=== PATIENT | female | born 1995 | race African-American/Black ===

== ENCOUNTER 2021-10-04 07:46 | Emergency (ER) | payer SELFPAY | END 2021-10-04 08:02 | disposition home or self-care (01) | LOC: CSHERS 07:46 | DX: B34.9 Viral infection, unspecified (principal); I10 Essential (primary) hypertension | CPT/HCPCS: 99283 ==

== ENCOUNTER 2021-11-01 07:46 | Emergency (ER) | payer SELFPAY ==
[2021-11-01] MEDS ORDERED: Ibuprofen 200 MG TAB ONE ×2 (08:36→08:45)
[2021-11-01 18:25] LABS: SARS-CoV-2 PCR by NAA Not Detected (NotDetected)
== END 2021-11-01 08:50 | disposition home or self-care (01) ==
LOC: CSHERS 07:46
DX: K05.00 Acute gingivitis, plaque induced (principal); B34.9 Viral infection, unspecified; Z20.822 Contact with and (suspected) exposure to COVID-19; I10 Essential (primary) hypertension
CPT/HCPCS: 87804; 99283; U0003; U0005

== ENCOUNTER 2022-07-05 08:19 | Emergency (ER) | payer SELFPAY | END 2022-07-05 09:00 | disposition home or self-care (01) | LOC: CSHERS 08:19 | DX: J02.0 Streptococcal pharyngitis (principal); I10 Essential (primary) hypertension; Z79.899 Other long term (current) drug therapy | CPT/HCPCS: 99283 ==

== ENCOUNTER 2022-10-11 09:47 | Emergency (ER) | payer MEDICAID, SELFPAY ==
[2022-10-11 11:10] LABS: Mean Platelet Volume 12.4 fl (7.4-10.4)
[2022-10-11 11:11] LABS: Hemoglobin 13.5 g/dL (12.0-15.5); Mean Corpuscular Hemoglobin 26.4 pg (27.0-33.0); Mean Corpuscular Volume 82.4 fl (81.6-98.3); Platelet Count 153 10x3/uL (150-450); RBC Distribution Width 13.8 % (11.5-14.5)
[2022-10-11 11:18] LABS: ALT (SGPT) 11 U/L (8-55); AST (SGOT) 14 U/L (5-34); Albumin 4.2 g/dL (3.5-5.0); Alkaline Phosphatase 59 U/L (40-110); Anion Gap 13 mmol/L (10-20); BUN (Urea Nitrogen) 6 mg/dL (7.0-18.7); Bilirubin, Total 0.5 mg/dL (0.2-1.2); Calc. Creatinine Clearance 0 mL/min (70-130); Calcium 9.4 mg/dL (7.8-10.44); Carbon Dioxide 24 mmol/L (22-29); Chloride 107 mmol/L (98-107); Estimated GFR 105; Glucose 94 mg/dL (70-105); Protein, Total 8.2 g/dL (6.0-8.3); Sodium 140 mmol/L (136-145)
[2022-10-11 11:53] LABS: Eosinophils 1 % (0-10); Lymphocytes 21 % (21-51); Monocytes 23 % (0-10); Reactive Lymphocytes 1 % (0-10)
[2022-10-11 11:57] LABS: Neutrophil 54 % (42-75)
[2022-10-11 11:58] LABS: Platelet Morphology Comment Appears Adequate; Red Blood Cell (RBC) Count 5.12 10x6/uL (3.90-5.03); White Blood Cell (WBC) Count 3.5 10x3/uL (3.5-10.5)
[2022-10-11] MEDS ORDERED: Iopamidol 300 61% 100 ML VIAL FS ONE (13:58)
== END 2022-10-11 13:05 | disposition home or self-care (01) ==
LOC: CSHERS 09:47
DX: R59.1 Generalized enlarged lymph nodes (principal); I10 Essential (primary) hypertension
CPT/HCPCS: 70491; 80053; 85025; Q9967